=== PATIENT | male | born 1990 | race African-American/Black ===

== ENCOUNTER 2018-08-31 21:00 | Emergency (ER) | payer SELFPAY ==
[~2018-08-31] VITALS: Ht 177.8 cm; Wt 95.3 kg
[2018-08-31] MEDS ORDERED: IPRATRPIUM/ALBUTEROL 0.5/2.5MG 3 ML NEBU. NEB ONE (21:15)
[2018-08-31] MEDS ORDERED: ALBUTEROL SULFATE 2.5 MG/3 ML NEBU. NEB ONE (21:15)
[2018-08-31] MEDS ORDERED: DEXAMETHASONE SOD PHOS 20 MG/5 ML VIAL. PO ONE (21:30)
[2018-08-31] MEDS ORDERED: ALBUTEROL SULFATE 2.5 MG/3 ML NEBU. CONT NEB ONE (22:15)
--- NOTE | 2018-08-31 22:20 | PHYS DOC ---
Past Medical History Past Medical History: Asthma Past Surgical History: No Surgical History Alcohol Use: Occasionally Drug Use: None Adult General Chief Complaint Chief Complaint: ASTHMA HPI HPI Patient is a 28 year old AA male who presents to the emergency room [facility] with complaints of severe shortness of breath since approximately 1829. Patient reports a history of asthma and seasonal allergies. He states that he smokes about half a pack of cigarettes a day. He has had a productive cough with fair thick sputum for the last week and half. He denies any fever, headache, sore throat, nausea, vomiting, diarrhea, abdominal pain, or back pain. 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 Since starting this job he has had uses inhaler at least 3 times a day and has had to take at least 2 nebulizer treatments a day. Currently the patient states that his chest feels tight and he is only able to speak 2-3 words at a time. Review of Systems Review of Systems Constitutional: Denies fever or chills [] Eyes: Denies eye itching, watering, or redness HENT: reports nasal congestion and frequent throat clearing Respiratory: reports severe SOA since 1829, increased MDI use for the last week an a half. productive cough with clear sputum, chest tightness Cardiovascular: denies palpitations GI: Denies abdominal pain, nausea, vomiting,or diarrhea [] Musculoskeletal: Denies back pain or joint pain [] Integument: Denies rash or skin lesions [] Neurologic: Denies headache, focal weakness or sensory changes [] All other systems were reviewed and found to be within normal limits, except as documented in this note. Current Medications Current Medications Current Medications Medications (Trade) Dose Ordered Sig/Gene Start Time Stop Time Status Last Admin Dose Admin Albuterol Sulfate (Ventolin Neb Soln) 10 mg 1X ONCE 08/31/18 22:15 08/31/18 22:16 DC 08/31/18 22:11 10 MG Albuterol/ Ipratropium (Duoneb) 3 ml 1X ONCE 08/31/18 21:15 08/31/18 21:16 DC 08/31/18 21:11 3 ML Dexamethasone Sodium Phosphate (Decadron) 10 mg 1X ONCE 08/31/18 21:30 08/31/18 21:31 DC 08/31/18 21:22 10 MG Allergies Allergies Allergies Coded Allergies Type Severity Reaction Last Updated Verified No Known Drug Allergies 08/31/18 No Physical Exam Physical Exam Constitutional: Well developed, well nourished, severe respiratory distress, sitting in tripod position, non-toxic appearance. [] HENT: Normocephalic, atraumatic, bilateral external ears normal, oropharynx moist, no oral exudates, nose normal. [] Eyes: PERRLA, conjunctiva normal, no discharge. [] Neck: Normal range of motion, no tenderness, supple, no stridor. [] Cardiovascular:Heart rate regular rhythm, no murmur [] Lungs & Thorax: Bilateral breath sounds diminished with inspiratory and expiratory wheezing throughout all delgado Skin: Warm, dry, no erythema, no rash, cap refill less than 2 seconds . [] Extremities: No cyanosis, no clubbing, ROM intact, no edema. [] Neurologic: Alert and oriented X 3, normal motor function, normal sensory function, no focal deficits noted. [] Psychologic: Affect normal, judgement normal, mood normal. [] Current Patient Data Vital Signs Vital Signs Date Time Temp Pulse Resp B/P (MAP) Pulse Ox O2 Delivery O2 Flow Rate FiO2 08/31/18 22:12 100 Nasal Cannula 2.0 08/31/18 21:23 87 20 135/82 (99) 08/31/18 21:07 97.7 97.7 EKG EKG [] Radiology/Procedures Radiology/Procedures CXR negative for acute findings read by Dr. Woodlal[] Pt was given an albuterol and duo neb treatment, lungs remain wheezy throughout A 1 hour continuous nebulizer was given, lung sounds were coarse with scattered expiratory wheezing, no retractions. pt is able to lay back in the bed, Speaking full sentences. Pt states that he is feeling much better. He has has an MDI and nebulizer at home. Course & Med Decision Making Course & Med Decision Making Pertinent Labs and Imaging studies reviewed. (See chart for details) Dx: Acute asthma exacerbation, allergic rhinitis Pt encouraged to start taking a daily antihistamine such as zyrtec or claritin. Continue home nebulizer treatments every 4 hours as needed. Prescription for prednisone 50 mg PO x5 days written. Pt instructed to quit smoking immediately and avoid exposure to airway irritants. Return to the ER if your symptoms worsen. Follow up with PCP next week, call and tell them you were seen in the ER and placed on steroids. Increase clear fluids. Pt's spouse and Patient verbalized an understanding of home care, medications, follow-up, and return to ED instructions and were in agreement with the plan of care. [] Dragon Disclaimer Dragon Disclaimer This electronic medical record was generated, in whole or in part, using a voice recognition dictation system. Departure Departure Impression: Primary Impression: Acute asthma exacerbation Additional Impression: Allergic rhinitis Disposition: HOME, SELF-CARE Condition: STABLE Patient Instructions: Asthma Prevention-Brief, Asthma, Adult, [id number] Additional Instructions: Fill prescription(s) and use as directed. STOP SMOKING! Continue using your nebulizer every 4 hours as needed for wheezing and shortness of breath, you can take another breathing treatment at 1230 if needed. Start taking a daily antihistamine such as zyrtec or claritin. Use a cool mist humidifier in room at bedtime. Tylenol or ibuprofen prn pain/fever. Increase clear fluids. Avoid triggers such as smoke, fragrance, dust, and pollen. May take OTC cough suppressants as needed. Follow-up with your primary care doctor as needed. Scripts Prednisone (PREDNISONE) 50 Mg Tablet 1 TAB PO DAILY, #5 TAB 0 Refills Prov: DK SANTIAGO APRN 08/31/18 Problem Qualifiers Primary Impression: Acute asthma exacerbation Asthma severity: severe Asthma persistence: persistent Qualified Codes: J45.51 - Severe persistent asthma with (acute) exacerbation Additional Impression: Allergic rhinitis Allergic rhinitis trigger: unspecified Allergic rhinitis seasonality: unspecified Qualified Codes: J30.9 - Allergic rhinitis, unspecified DK SANTIAGO APRN Aug 31, 2018 22:20
[2018-08-31] MEDS ORDERED: PRED50TA PO (22:54)
[2018-08-31 22:58] VITALS: BP 140/81
--- NOTE | 2018-08-31 23:56 | RAD ---
Chest AP portable at 2215: Reason for examination: Short of breath. Asthma. The heart size is normal. Mediastinum is unremarkable. Lung delgado are clear. No acute bony abnormalities are seen. Impression: No acute cardiopulmonary disease. Electronically signed by: Bhumi Silveira MD (08/31/2018 11:53 PM) [facility] [place]
[2018-09-01] MEDS ORDERED: NO HOME MEDICATIONS (02:38)
== END 2018-08-31 23:34 | disposition home or self-care (01) ==
LOC: ER 21:00
DX: J45.51 Severe persistent asthma with (acute) exacerbation (principal); J30.9 Allergic rhinitis, unspecified; F17.210 Nicotine dependence, cigarettes, uncomplicated
CPT/HCPCS: 71045; 94644; 99285; J1100; J7613; J7620; 94640

== ENCOUNTER 2018-09-01 01:07 | Inpatient (IN) | payer SELFPAY ==
[~2018-09-01] VITALS: Ht 182.9 cm; Wt 95.3 kg
[~2018-09-01 01:07] MED LIST: PRED50TA PO
[2018-09-01] MEDS ORDERED: ALBUTEROL SULFATE 2.5 MG/3 ML NEBU. ONE (01:10)
--- NOTE | 2018-09-01 01:19 | PHYS DOC ---
Past Medical History Past Medical History: Asthma Past Surgical History: No Surgical History Alcohol Use: Occasionally Drug Use: None Adult General Chief Complaint Chief Complaint: ASTHMA HPI HPI Patient is a 28 year old male who presents with acute asthma exacerbation. Patient presents with accessory muscle use and was 71% on room air. Patient was recently discharged from the emergency department with asthma exacerbation and reportedly had improved dramatically after his treatment in the ED which included an hour-long continuous as well as Decadron by mouth. Girlfriend states that he went home and went to bed and woke up accessory muscle use and shortness of breath. Resents with inspiratory and expiratory wheezes. Review of Systems Review of Systems Constitutional: Denies fever or chills [] Eyes: Denies change in visual acuity, redness, or eye pain [] HENT: Denies nasal congestion or sore throat [] Respiratory: Positive shortness of breath [] Cardiovascular: No additional information not addressed in HPI [] GI: Denies abdominal pain, nausea, vomiting, bloody stools or diarrhea [] : Denies dysuria or hematuria [] Musculoskeletal: Denies back pain or joint pain [] Integument: Denies rash or skin lesions [] Neurologic: Denies headache, focal weakness or sensory changes [] Endocrine: Denies polyuria or polydipsia [] All other systems were reviewed and found to be within normal limits, except as documented in this note. Current Medications Current Medications Current Medications Medications (Trade) Dose Ordered Sig/Gene Start Time Stop Time Status Last Admin Dose Admin Albuterol Sulfate (Ventolin Neb Soln) 2.5 mg PRN Q4HRS PRN 09/01/18 01:30 Albuterol/ Ipratropium (Duoneb) 3 ml 1X ONCE 09/01/18 01:30 09/01/18 01:31 DC Methylprednisolone Sodium Succinate (SOLU-Medrol 40MG VIAL) 60 mg Q8HRS 09/01/18 06:00 Methylprednisolone Sodium Succinate (SOLU-Medrol 125MG VIAL) 125 mg 1X ONCE 09/01/18 01:30 09/01/18 01:31 DC Morphine Sulfate (Morphine Sulfate) 2 mg PRN Q2HR PRN 09/01/18 01:30 09/02/18 01:29 Ondansetron HCl (Zofran) 4 mg 1X ONCE 09/01/18 02:00 09/01/18 02:01 Allergies Allergies Allergies Coded Allergies Type Severity Reaction Last Updated Verified No Known Drug Allergies 08/31/18 No Physical Exam Physical Exam Constitutional: Well developed, well nourished, no acute distress, non-toxic appearance. [] HENT: Normocephalic, atraumatic, bilateral external ears normal, oropharynx moist, no oral exudates, nose normal. [] Eyes: PERRLA, EOMI, conjunctiva normal, no discharge. [] Neck: Normal range of motion, no tenderness, supple, no stridor. [] Cardiovascular:Heart rate regular rhythm, no murmur [] Lungs & Thorax: Inspiratory and expiratory wheezes with accessory muscle use[] Abdomen: Bowel sounds normal, soft, no tenderness, no masses, no pulsatile masses. [] Skin: Warm, dry, no erythema, no rash. [] Back: No tenderness, no CVA tenderness. [] Extremities: No tenderness, no cyanosis, no clubbing, ROM intact, no edema. [] Neurologic: Alert and oriented X 3, normal motor function, normal sensory function, no focal deficits noted. [] Psychologic: Affect normal, judgement normal, mood normal. [] EKG EKG [] Radiology/Procedures Radiology/Procedures [facility] [address] [place], [place] [id number] IMAGING REPORT Signed PATIENT: LILLY ROSENBERG ACCOUNT: [id number] : 1990 LOCATION: ER AGE: 28 SEX: M EXAM STATUS: DEP ER ORD. PHYSICIAN: DK SANTIAGO APRN REASON: SOA asthma PROCEDURE: PORTABLE CHEST 1V Chest AP portable at 2215: Reason for examination: Short of breath. Asthma. The heart size is normal. Mediastinum is unremarkable. Lung delgado are clear. No acute bony abnormalities are seen. Impression: No acute cardiopulmonary disease. Electronically signed by: Bhumi Cannon MD (08/31/2018 11:53 PM) [facility] DICTATED and SIGNED BY: BHUMI CANNON MD DATE: 08/31/18 0256 [] Course & Med Decision Making Course & Med Decision Making Pertinent Labs and Imaging studies reviewed. (See chart for details) [] Dragon Disclaimer Dragon Disclaimer This electronic medical record was generated, in whole or in part, using a voice recognition dictation system. Departure Departure Referrals: NO PCP (PCP) CRISTÓBAL MARIA MD Sep 01, 2018 01:19
[2018-09-01] MEDS ORDERED: IPRATRPIUM/ALBUTEROL 0.5/2.5MG 3 ML NEBU. NEB ONE (01:30)
[2018-09-01] MEDS ORDERED: ONDANSETRON PF 4 MG/2 ML VIAL. IV PRN (01:30)
[2018-09-01] MEDS ORDERED: MORPHINE SULFATE 2 MG/ML VIAL. IV PRN (01:30)
[2018-09-01] MEDS ORDERED: methylPREDNISolone SOD SUCC PF 125 MG/2 ML VIAL. IV ONE (01:30)
[2018-09-01 01:45] LABS: BASO % 0 % (0-3); EOS % 0 % (0-3); HEMATOCRIT 48.7 % (39.0-53.0); HEMOGLOBIN 16.2 g/dL (13.0-17.5); LYMPH # 1.2 x10^3/uL (1.0-4.8); LYMPH % 8 % (24-48); MEAN CORPUSCULAR HEMOGLOBIN 28 pg (25-35); MEAN CORPUSCULAR HGB CONC 33 g/dL (31-37); MEAN CORPUSCULAR VOLUME 84 fL (79-100); MONO # 0.4 x10^3/uL (0.0-1.1); MONO % 3 % (0-9); NEUT # 13.3 x10^3uL (1.8-7.7); NEUT % 89 % (31-73); PLATELET COUNT 220 x10^3/uL (140-400); RED BLOOD COUNT 5.82 x10^6/uL (4.30-5.70); RED CELL DISTRIBUTION WIDTH 14.8 % (11.5-14.5); WHITE BLOOD COUNT 14.9 x10^3/uL (4.0-11.0)
[2018-09-01 01:54] LABS: CALCIUM 9.5 mg/dL (8.5-10.1); CREATININE 0.9 mg/dL (0.7-1.3); GFR 121.6; POTASSIUM 4.4 mmol/L (3.5-5.1)
[2018-09-01 01:59] LABS: ALBUMIN 4.2 g/dL (3.4-5.0); TOTAL BILIRUBIN 0.3 mg/dL (0.2-1.0); TOTAL PROTEIN 8.6 g/dL (6.4-8.2)
[2018-09-01] MEDS ORDERED: ONDANSETRON PF 4 MG/2 ML VIAL. IV ONE (02:00)
[2018-09-01] MEDS ORDERED: NO HOME MEDICATIONS (02:38)
[2018-09-01 03:00] VITALS: BP 122/77
[2018-09-01 03:41] LABS: % LYMPHS 14 % (24-48); % SEGS 86 % (35-66); PLT ESTIMATE ADEQUATE (ADEQUATE)
[2018-09-01] MEDS: methylPREDNISolone SOD SUCC PF 40 MG/ML VIAL. IV SCH ×3 (05:43→20:47)
[2018-09-01 07:00] VITALS: BP 133/96
[2018-09-01] MEDS: ALBUTEROL SULFATE 2.5 MG/3 ML NEBU. NEB PRN (09:38)
[2018-09-01 11:00] VITALS: BP 111/65
[2018-09-01] MEDS: IPRATRPIUM/ALBUTEROL 0.5/2.5MG 3 ML NEBU. NEB SCH ×3 (11:23→18:40)
--- NOTE | 2018-09-01 12:15 | HP ---
ADMIT DATE: 09/01/2018 CHIEF COMPLAINT: Wheezing. HISTORY OF PRESENT ILLNESS: The patient is a pleasant, relatively healthy 28-year-old male presented with wheezing. He has known asthma. Rates his symptoms as 7/10, has associated weakness and anxiety. I discussed the case with ER physician. It appears the patient is having asthma exacerbation with hypoxia. We are going to admit the patient and consult Pulmonary and give him some IV steroids and breathing treatments. PAST MEDICAL HISTORY: Asthma. ALLERGIES: None. FAMILY HISTORY: Asthma. SOCIAL HISTORY: Does not drink, smoke or take drugs. MEDICATIONS: Reviewed, please refer to the MRAD. REVIEW OF SYSTEMS: GENERAL: No history of weight change, weakness or fevers. SKIN: No bruising, hair changes or rashes. EYES: No blurred, double or loss of vision. NOSE AND THROAT: No history of nosebleeds, hoarseness or sore throat. HEART: No history of palpitations, chest pain or shortness of breath on exertion. LUNGS: He complains of shortness of breath and wheezing. GASTROINTESTINAL: Denies changes in appetite, nausea, vomiting, diarrhea or constipation. GENITOURINARY: No history of frequency, urgency, hesitancy or nocturia. NEUROLOGIC: Denies history of numbness, tingling, tremor or weakness. PSYCHIATRIC: No history of panic, anxiety or depression. ENDOCRINE: No history of heat or cold intolerance, polyuria or polydipsia. EXTREMITIES: Denies muscle weakness, joint pain, pain on walking or stiffness. PHYSICAL EXAMINATION: VITAL SIGNS: Temperature afebrile, pulse 80, respirations 18, blood pressure 144/90. O2 sat is 71% on room air. GENERAL: He is alert, cooperative. HEART: Normal S1, S2. LUNGS: Coarse with wheezing. ABDOMEN: Soft, positive bowel sounds. EXTREMITIES: No edema. SKIN: No rash. ENDOCRINE: No thyromegaly. LYMPHATICS: No cervical nodes. HEMATOPOIETIC: No bruising. LABORATORY DATA: White count is 15. Electrolytes are normal. ASSESSMENT AND PLAN: Asthma exacerbation and leukocytosis. The patient has been admitted. We will give him IV Solu-Medrol, DuoNeb q.4h., O2 per nasal cannula, empiric IV antibiotics. Consult Pulmonary, home meds, frequent labs. TIA BORGES DO DR: Maverick JOB#: [id number] / [id number]
[2018-09-01] MEDS: cefTRIAXone IV Push 1 GM VIAL. IVP SCH (13:28)
[2018-09-01 15:29] VITALS: BP 123/57
[2018-09-01 19:00] VITALS: BP 134/73
[2018-09-01] MEDS: LACTOBACILLUS RHAMNOSUS GG 1 CAPSULE. PO SCH (20:46)
[2018-09-01 23:01] VITALS: BP 137/69
[2018-09-02] MEDS: ALBUTEROL SULFATE 2.5 MG/3 ML NEBU. NEB PRN (00:11)
[2018-09-02 03:01] VITALS: BP 140/70
[2018-09-02] MEDS: methylPREDNISolone SOD SUCC PF 40 MG/ML VIAL. IV SCH ×3 (05:55→20:59)
[2018-09-02 07:00] VITALS: BP 125/85
--- NOTE | 2018-09-02 08:58 | PDOC ---
Provider Note Provider Note [id number] acute resp fail ae of asthma acute bronchitis see orders LILLI REESE MD Sep 02, 2018 08:58
[2018-09-02] MEDS: IPRATRPIUM/ALBUTEROL 0.5/2.5MG 3 ML NEBU. NEB SCH ×4 (09:10→20:20)
[2018-09-02] MEDS: LACTOBACILLUS RHAMNOSUS GG 1 CAPSULE. PO SCH ×2 (09:14→20:59)
--- NOTE | 2018-09-02 09:32 | CONS ---
DATE OF CONSULTATION: 09/02/2018 I was asked to see this 28-year-old gentleman for acute exacerbation of asthma. HISTORY OF PRESENT ILLNESS: He has history of [id number] smoking, continues to smoke about half a pack per day. He does have asthma and is on Symbicort and albuterol. He presented to the Emergency Room, had very severe shortness of breath and was using accessory muscles. The patient was given steroids and nebulizer treatments. He does have cough and sputum production. He denies runny nose. He denies chest pain. He has had wheezing. PAST MEDICAL HISTORY: Asthma. SOCIAL HISTORY: History of [id number] smoking, continues to smoke half pack per day. FAMILY HISTORY: There is no history of lung disease. ALLERGIES: No known drug allergies. MEDICATIONS: Currently, he is on Rocephin, DuoNeb, Solu-Medrol 60 mg IV every 8. REVIEW OF SYSTEMS: As mentioned as above. He denies drug abuse. Other systems are otherwise negative. PHYSICAL EXAMINATION: GENERAL: This is a well-developed gentleman. VITAL SIGNS: His O2 saturation is 92%, respiratory rate 18, heart rate 84, blood pressure 125/85, temperature 98.1. HEENT: Normocephalic, atraumatic. Pupils equal, round, reactive to light. Throat is clear. Nose is clear. NECK: There is no JVD, lymphadenopathy or thyromegaly. CARDIOVASCULAR: Regular rate and rhythm. PMI is nondisplaced. CHEST: Inspection is normal. LUNGS: There is end-expiratory wheezing. Percussion is within normal limit. ABDOMEN: Soft. Bowel sounds are good. There is no mass. EXTREMITIES: There is no edema. LYMPHATICS: There is no lymphadenopathy. NEUROLOGIC: Alert and oriented. LABORATORY DATA: I reviewed the following lab data: Chest x-ray does not show infiltrate. WBC 14.9, hemoglobin 16.2, platelet 220. Sodium 145, potassium 4.5, chloride 106, CO2 of 26, glucose 194, BUN 9, creatinine 0.9. IMPRESSION: 1. Acute respiratory failure secondary to acute exacerbation of asthma and acute bronchitis versus others. 2. Acute exacerbation of asthma. 3. Acute bronchitis. 4. Tobacco habituation. PLAN AND RECOMMENDATIONS: 1. Titrate FiO2 to keep O2 saturation 92%. 2. Bronchodilator. 3. Continue Solu-Medrol, do not change the dose as he is still wheezing. 4. Continue Rocephin. 5. I had a long discussion with him regarding smoking cessation. I have advised him to stop smoking forever. Thank you very much for allowing me to participate in care of this very nice gentleman. LILLI REESE M.D. DR: Yari JOB#: [id number] / [id number]
[2018-09-02 11:23] VITALS: BP 136/83
[2018-09-02] MEDS: cefTRIAXone IV Push 1 GM VIAL. IVP SCH ×2 (12:52→13:12)
--- NOTE | 2018-09-02 13:48 | PDOC ---
PROGRESS NOTES Chief Complaint Chief Complaint Acute asthma exacerbation History of Present Illness History of Present Illness Pt seen and examine, pt states is is breathing better than yesterday and would like to go home VSS dw/ DN Family at bedside Vitals Vitals Vital Signs Date Time Temp Pulse Resp B/P (MAP) Pulse Ox O2 Delivery O2 Flow Rate FiO2 09/02/18 13:06 Room Air 09/02/18 11:23 98.1 85 136/83 (100) 94 2.0 98.1 09/02/18 07:00 18 Physical Exam General: Alert, Oriented X3, Cooperative Heart: Regular rate, No murmurs Lungs: Other (Mild Inspiratory wheeze greater on the left) Abdomen: Normal bowel sounds, Soft Extremities: No clubbing, No cyanosis Review of Systems Review of Systems CO fatigue CO hunger Assessment and Plan Assessmemt and Plan Problems Medical Problems: (1) Acute asthma exacerbation Status: Acute Acute Asthma exacerbation Plan: O2 weaning Breathing Treatments Steroids Home Meds Labs Comment Review of Relevant I have reviewed the following items amado (where applicable) has been applied. Labs Laboratory Tests Test 09/01/18 01:30 White Blood Count 14.9 x10^3/uL (4.0-11.0) Red Blood Count 5.82 x10^6/uL (4.30-5.70) Hemoglobin 16.2 g/dL (13.0-17.5) Hematocrit 48.7 % (39.0-53.0) Mean Corpuscular Volume 84 fL (79-100) Mean Corpuscular Hemoglobin 28 pg (25-35) Mean Corpuscular Hemoglobin Concent 33 g/dL (31-37) Red Cell Distribution Width 14.8 % (11.5-14.5) Platelet Count 220 x10^3/uL (140-400) Neutrophils (%) (Auto) 89 % (31-73) Lymphocytes (%) (Auto) 8 % (24-48) Monocytes (%) (Auto) 3 % (0-9) Eosinophils (%) (Auto) 0 % (0-3) Basophils (%) (Auto) 0 % (0-3) Neutrophils # (Auto) 13.3 x10^3uL (1.8-7.7) Lymphocytes # (Auto) 1.2 x10^3/uL (1.0-4.8) Monocytes # (Auto) 0.4 x10^3/uL (0.0-1.1) Eosinophils # (Auto) 0.0 x10^3/uL (0.0-0.7) Basophils # (Auto) 0.0 x10^3/uL (0.0-0.2) Segmented Neutrophils % 86 % (35-66) Lymphocytes % 14 % (24-48) Platelet Estimate Adequate (ADEQUATE) Sodium Level 145 mmol/L (136-145) Potassium Level 4.4 mmol/L (3.5-5.1) Chloride Level 106 mmol/L (98-107) Carbon Dioxide Level 26 mmol/L (21-32) Anion Gap 13 (6-14) Blood Urea Nitrogen 9 mg/dL (8-26) Creatinine 0.9 mg/dL (0.7-1.3) Estimated GFR (Cockcroft-Gault) 121.6 BUN/Creatinine Ratio 10 (6-20) Glucose Level 194 mg/dL (70-99) Calcium Level 9.5 mg/dL (8.5-10.1) Total Bilirubin 0.3 mg/dL (0.2-1.0) Aspartate Amino Transf (AST/SGOT) 15 U/L (15-37) Alanine Aminotransferase (ALT/SGPT) 16 U/L (16-63) Alkaline Phosphatase 106 U/L (46-116) Total Protein 8.6 g/dL (6.4-8.2) Albumin 4.2 g/dL (3.4-5.0) Albumin/Globulin Ratio 1.0 (1.0-1.7) Medications Current Medications Albuterol Sulfate (Ventolin Neb Soln) 2.5 mg STK-MED ONCE .ROUTE ; Start at 01:10; Stop 09/01/18 at 01:11; Status DC Albuterol/ Ipratropium (Duoneb) 3 ml 1X ONCE NEB Last administered on at 01:30; Start 09/01/18 at 01:30; Stop 09/01/18 at 01:31; Status DC Methylprednisolone Sodium Succinate (SOLU-Medrol 125MG VIAL) 125 mg 1X ONCE IV Last administered on 09/01/18at 01:30; Start 09/01/18 at 01:30; Stop at 01:31; Status DC Ondansetron HCl (Zofran) 4 mg PRN Q8HRS PRN IV NAUSEA/VOMITING 1st choice; Start 09/01/18 at 01:30; Stop 09/02/18 at 01:29; Status DC Morphine Sulfate (Morphine Sulfate) 2 mg PRN Q2HR PRN IV SEVERE PAIN; Start at 01:30; Stop 09/02/18 at 01:29; Status DC Albuterol Sulfate (Ventolin Neb Soln) 2.5 mg PRN Q4HRS PRN NEB WHEEZING Last administered on 09/02/18at 00:11; Start 09/01/18 at 01:30 Methylprednisolone Sodium Succinate (SOLU-Medrol 40MG VIAL) 60 mg Q8HRS IV Last administered on 09/02/18at 13:13; Start 09/01/18 at 06:00 Ondansetron HCl (Zofran) 4 mg 1X ONCE IV Last administered on 09/01/18at 01:54 ; Start 09/01/18 at 02:00; Stop 09/01/18 at 02:01; Status DC Albuterol/ Ipratropium (Duoneb) 3 ml RTQID NEB Last administered on 09/02/18at 13:05; Start 09/01/18 at 12:00 Ceftriaxone Sodium 1 gm/ Dextrose 50 ml @ 100 mls/hr Q24H IV ; Start 09/01/18 at 11:45; Status UNV Ceftriaxone Sodium (Rocephin) 1 gm Q24H IVP Last administered on 09/02/18at 13: 12; Start 09/01/18 at 12:00 Lactobacillus Rhamnosus (Culturelle) 1 cap BID PO Last administered on at 09:14; Start 09/01/18 at 21:00 Active Scripts Active Prednisone 50 Mg Tablet 1 Tab PO DAILY Reported [No Home Medications] Vitals/I & O Vital Sign - Last 24 Hours 09/01/18 09/01/18 09/01/18 09/01/18 15:29 15:49 18:41 19:00 Temp 98.3 98.4 98.3 98.4 Pulse 79 83 Resp 18 20 B/P (MAP) 123/57 (79) 134/73 (93) Pulse Ox 90 92 O2 Delivery Nasal Cannula Nasal Cannula Nasal Cannula Room Air O2 Flow Rate 6.0 2.0 2.0 09/01/18 09/01/18 09/02/18 09/02/18 19:35 23:01 00:10 03:01 Temp 98.0 97.3 98.0 97.3 Pulse 74 85 Resp 20 20 B/P (MAP) 137/69 (91) 140/70 (93) Pulse Ox 91 95 O2 Delivery Nasal Cannula Room Air Room Air Nasal Cannula O2 Flow Rate 2.0 09/02/18 09/02/18 09/02/18 09/02/18 07:00 09:12 11:23 13:06 Temp 98.1 98.1 98.1 98.1 Pulse 84 85 Resp 18 B/P (MAP) 125/85 (98) 136/83 (100) Pulse Ox 90 91 94 O2 Delivery Room Air Room Air Nasal Cannula Room Air O2 Flow Rate 2.0 TIA BORGES III DO Sep 02, 2018 13:48
[2018-09-02 15:18] VITALS: BP 149/80
[2018-09-02 19:00] VITALS: BP 128/80
[2018-09-02 23:00] VITALS: BP 131/75
[2018-09-03 03:04] VITALS: BP 125/76
[2018-09-03 04:23] LABS: BASO % 0 % (0-3); EOS % 0 % (0-3); HEMATOCRIT 47.9 % (39.0-53.0); HEMOGLOBIN 16.1 g/dL (13.0-17.5); LYMPH # 1.3 x10^3/uL (1.0-4.8); LYMPH % 7 % (24-48); MEAN CORPUSCULAR HEMOGLOBIN 28 pg (25-35); MEAN CORPUSCULAR HGB CONC 34 g/dL (31-37); MEAN CORPUSCULAR VOLUME 83 fL (79-100); MONO # 0.8 x10^3/uL (0.0-1.1); MONO % 5 % (0-9); NEUT # 16.1 x10^3uL (1.8-7.7); NEUT % 88 % (31-73); PLATELET COUNT 220 x10^3/uL (140-400); RED BLOOD COUNT 5.76 x10^6/uL (4.30-5.70); RED CELL DISTRIBUTION WIDTH 15.1 % (11.5-14.5); WHITE BLOOD COUNT 18.2 x10^3/uL (4.0-11.0)
[2018-09-03 04:45] LABS: CALCIUM 9.7 mg/dL (8.5-10.1); GFR 107.7; POTASSIUM 4.6 mmol/L (3.5-5.1)
[2018-09-03] MEDS: methylPREDNISolone SOD SUCC PF 40 MG/ML VIAL. IV SCH ×2 (05:48→13:38)
[2018-09-03 07:00] VITALS: BP 134/85
[2018-09-03] MEDS: IPRATRPIUM/ALBUTEROL 0.5/2.5MG 3 ML NEBU. NEB SCH ×2 (07:07→11:30)
[2018-09-03] MEDS: LACTOBACILLUS RHAMNOSUS GG 1 CAPSULE. PO SCH (09:59)
[2018-09-03] MEDS ORDERED: PROAIR HFA8.5 GM INH (10:00)
[2018-09-03] MEDS ORDERED: CIPR500T94 PO (10:00)
[2018-09-03] MEDS ORDERED: FLUT12AE IH (10:00)
--- NOTE | 2018-09-03 10:10 | PDOC3 ---
Discharge Summary Visit Information Date of Admission: Sep 01, 2018 Date of Discharge: Sep 03, 2018 Admitting Diagnosis: hypoxia Final Diagnosis acute hypoxic respiratory failure asthma exacerbation acute bronchitis SIRS with organ dysfunction Problems Medical Problems: (1) Acute asthma exacerbation Status: Acute Brief Hospital Course Allergies Allergies Coded Allergies Type Severity Reaction Last Updated Verified No Known Drug Allergies 08/31/18 No Vital Signs Vital Signs Date Time Temp Pulse Resp B/P (MAP) Pulse Ox O2 Delivery O2 Flow Rate FiO2 09/03/18 07:09 96 Nasal Cannula 1.0 09/03/18 07:00 97.8 66 18 134/85 (101) 97.8 Lab Results Laboratory Tests Test 09/03/18 03:50 White Blood Count 18.2 x10^3/uL (4.0-11.0) Red Blood Count 5.76 x10^6/uL (4.30-5.70) Hemoglobin 16.1 g/dL (13.0-17.5) Hematocrit 47.9 % (39.0-53.0) Mean Corpuscular Volume 83 fL (79-100) Mean Corpuscular Hemoglobin 28 pg (25-35) Mean Corpuscular Hemoglobin Concent 34 g/dL (31-37) Red Cell Distribution Width 15.1 % (11.5-14.5) Platelet Count 220 x10^3/uL (140-400) Neutrophils (%) (Auto) 88 % (31-73) Lymphocytes (%) (Auto) 7 % (24-48) Monocytes (%) (Auto) 5 % (0-9) Eosinophils (%) (Auto) 0 % (0-3) Basophils (%) (Auto) 0 % (0-3) Neutrophils # (Auto) 16.1 x10^3uL (1.8-7.7) Lymphocytes # (Auto) 1.3 x10^3/uL (1.0-4.8) Monocytes # (Auto) 0.8 x10^3/uL (0.0-1.1) Eosinophils # (Auto) 0.0 x10^3/uL (0.0-0.7) Basophils # (Auto) 0.0 x10^3/uL (0.0-0.2) Sodium Level 140 mmol/L (136-145) Potassium Level 4.6 mmol/L (3.5-5.1) Chloride Level 103 mmol/L (98-107) Carbon Dioxide Level 29 mmol/L (21-32) Anion Gap 8 (6-14) Blood Urea Nitrogen 21 mg/dL (8-26) Creatinine 1.0 mg/dL (0.7-1.3) Estimated GFR (Cockcroft-Gault) 107.7 Glucose Level 141 mg/dL (70-99) Calcium Level 9.7 mg/dL (8.5-10.1) Laboratory Tests Test 09/03/18 03:50 White Blood Count 18.2 x10^3/uL (4.0-11.0) Red Blood Count 5.76 x10^6/uL (4.30-5.70) Hemoglobin 16.1 g/dL (13.0-17.5) Hematocrit 47.9 % (39.0-53.0) Mean Corpuscular Volume 83 fL (79-100) Mean Corpuscular Hemoglobin 28 pg (25-35) Mean Corpuscular Hemoglobin Concent 34 g/dL (31-37) Red Cell Distribution Width 15.1 % (11.5-14.5) Platelet Count 220 x10^3/uL (140-400) Neutrophils (%) (Auto) 88 % (31-73) Lymphocytes (%) (Auto) 7 % (24-48) Monocytes (%) (Auto) 5 % (0-9) Eosinophils (%) (Auto) 0 % (0-3) Basophils (%) (Auto) 0 % (0-3) Neutrophils # (Auto) 16.1 x10^3uL (1.8-7.7) Lymphocytes # (Auto) 1.3 x10^3/uL (1.0-4.8) Monocytes # (Auto) 0.8 x10^3/uL (0.0-1.1) Eosinophils # (Auto) 0.0 x10^3/uL (0.0-0.7) Basophils # (Auto) 0.0 x10^3/uL (0.0-0.2) Sodium Level 140 mmol/L (136-145) Potassium Level 4.6 mmol/L (3.5-5.1) Chloride Level 103 mmol/L (98-107) Carbon Dioxide Level 29 mmol/L (21-32) Anion Gap 8 (6-14) Blood Urea Nitrogen 21 mg/dL (8-26) Creatinine 1.0 mg/dL (0.7-1.3) Estimated GFR (Cockcroft-Gault) 107.7 Glucose Level 141 mg/dL (70-99) Calcium Level 9.7 mg/dL (8.5-10.1) Brief Hospital Course Mr. Jacobs is a 28 old male, admit with resp failure, wheeze, known asthma, no home steroid inhaler better at 2 days Discharge Information Condition at Discharge: Improved Follow Up: Weeks Disposition/Orders: D/C to Home Scheduled Ciprofloxacin Hcl (Cipro) 500 Mg Tablet, 1 TAB PO BID, #10 Prescribed by: LUIS MONTANO on 09/03/18 1000 Fluticasone Propionate (Flovent 110MCG Hfa) 12 Gm Aer.w.adap, 1 PUFF IH BID, #1 Ref 2 Prescribed by: LUIS MONTANO on 09/03/18 1000 Prednisone (Prednisone) 50 Mg Tablet, 1 TAB PO DAILY, #5 Ref 0 Prescribed by: DK SANTIAGO APRN on 08/31/18 2254 Scheduled PRN Albuterol Sulfate (Proair Hfa Inhaler) 8.5 Gm Hfa.aer.ad, 1 PUFF INH PRN Q6HRS PRN for SHORTNESS OF BREATH, #1 Ref 0 Prescribed by: LUIS MONTANO on 09/03/18 1000 Miscellaneous Medications [No Home Medications] , (Reported) Entered as Reported by: JESUS ERVIN on 09/01/18237 Last Action: New Order on 09/01/18237 by JESUS ERVIN Patient Instructions Patient Instructions f/u PULM i discussed need for him to find insurance for inhaled steroids, chronic asthma > 30 min face to face wheeze on left chest persists, trel f/u, cont tx LUIS MONTANO MD Sep 03, 2018 10:10
[2018-09-03] MEDS: ALBUTEROL SULFATE 2.5 MG/3 ML NEBU. NEB PRN (10:33)
[2018-09-03 11:00] VITALS: BP 124/81
--- NOTE | 2018-09-03 13:44 | PDOC ---
PULMONARY PROGRESS NOTES Subjective feels better Vitals Vital Signs Date Time Temp Pulse Resp B/P (MAP) Pulse Ox O2 Delivery O2 Flow Rate FiO2 09/03/18 11:00 97.8 74 18 124/81 (95) 92 Room Air 97.8 09/03/18 07:09 1.0 General: Alert, No acute distress Lungs: Wheezing (faint) Cardiovascular: S1 Abdomen: Soft Neuro Exam: Alert Extremities: No Edema Labs Laboratory Tests Test 09/03/18 03:50 White Blood Count 18.2 x10^3/uL (4.0-11.0) Red Blood Count 5.76 x10^6/uL (4.30-5.70) Hemoglobin 16.1 g/dL (13.0-17.5) Hematocrit 47.9 % (39.0-53.0) Mean Corpuscular Volume 83 fL (79-100) Mean Corpuscular Hemoglobin 28 pg (25-35) Mean Corpuscular Hemoglobin Concent 34 g/dL (31-37) Red Cell Distribution Width 15.1 % (11.5-14.5) Platelet Count 220 x10^3/uL (140-400) Neutrophils (%) (Auto) 88 % (31-73) Lymphocytes (%) (Auto) 7 % (24-48) Monocytes (%) (Auto) 5 % (0-9) Eosinophils (%) (Auto) 0 % (0-3) Basophils (%) (Auto) 0 % (0-3) Neutrophils # (Auto) 16.1 x10^3uL (1.8-7.7) Lymphocytes # (Auto) 1.3 x10^3/uL (1.0-4.8) Monocytes # (Auto) 0.8 x10^3/uL (0.0-1.1) Eosinophils # (Auto) 0.0 x10^3/uL (0.0-0.7) Basophils # (Auto) 0.0 x10^3/uL (0.0-0.2) Sodium Level 140 mmol/L (136-145) Potassium Level 4.6 mmol/L (3.5-5.1) Chloride Level 103 mmol/L (98-107) Carbon Dioxide Level 29 mmol/L (21-32) Anion Gap 8 (6-14) Blood Urea Nitrogen 21 mg/dL (8-26) Creatinine 1.0 mg/dL (0.7-1.3) Estimated GFR (Cockcroft-Gault) 107.7 Glucose Level 141 mg/dL (70-99) Calcium Level 9.7 mg/dL (8.5-10.1) Laboratory Tests Test 09/03/18 03:50 White Blood Count 18.2 x10^3/uL (4.0-11.0) Red Blood Count 5.76 x10^6/uL (4.30-5.70) Hemoglobin 16.1 g/dL (13.0-17.5) Hematocrit 47.9 % (39.0-53.0) Mean Corpuscular Volume 83 fL (79-100) Mean Corpuscular Hemoglobin 28 pg (25-35) Mean Corpuscular Hemoglobin Concent 34 g/dL (31-37) Red Cell Distribution Width 15.1 % (11.5-14.5) Platelet Count 220 x10^3/uL (140-400) Neutrophils (%) (Auto) 88 % (31-73) Lymphocytes (%) (Auto) 7 % (24-48) Monocytes (%) (Auto) 5 % (0-9) Eosinophils (%) (Auto) 0 % (0-3) Basophils (%) (Auto) 0 % (0-3) Neutrophils # (Auto) 16.1 x10^3uL (1.8-7.7) Lymphocytes # (Auto) 1.3 x10^3/uL (1.0-4.8) Monocytes # (Auto) 0.8 x10^3/uL (0.0-1.1) Eosinophils # (Auto) 0.0 x10^3/uL (0.0-0.7) Basophils # (Auto) 0.0 x10^3/uL (0.0-0.2) Sodium Level 140 mmol/L (136-145) Potassium Level 4.6 mmol/L (3.5-5.1) Chloride Level 103 mmol/L (98-107) Carbon Dioxide Level 29 mmol/L (21-32) Anion Gap 8 (6-14) Blood Urea Nitrogen 21 mg/dL (8-26) Creatinine 1.0 mg/dL (0.7-1.3) Estimated GFR (Cockcroft-Gault) 107.7 Glucose Level 141 mg/dL (70-99) Calcium Level 9.7 mg/dL (8.5-10.1) Medications Active Scripts Medications Dose Route/Sig Max Daily Dose Days Date Category Proair Hfa Inhaler (Albuterol Sulfate) 8.5 Gm Hfa.aer.ad 1 Puff INH PRN Q6HRS PRN 09/03/18 Rx Cipro (Ciprofloxacin Hcl) 500 Mg Tablet 1 Tab PO BID 09/03/18 Rx Flovent 110MCG Hfa (Fluticasone Propionate) 12 Gm Aer.w.adap 1 Puff IH BID 09/03/18 Rx [No Home Medications] 09/01/18 Reported Prednisone 50 Mg Tablet 1 Tab PO DAILY 08/31/18 Rx Impression . 1. Acute respiratory failure secondary to acute exacerbation of asthma and acute bronchitis 2. Acute exacerbation of asthma. 3. Acute bronchitis. 4. Tobacco habituation. Plan . 1. off 02 2. Bronchodilator. 3. po steroid taper 4. po abx 5. I had a long discussion with him regarding smoking cessation. I have advised him to stop smoking forever. 6. ok with [place] home on inhalers including steroid inhaler, hopefully he can afford it. PO steroid taper ALF HURLEY MD Sep 03, 2018 13:44
--- NOTE | 2018-09-03 15:58 | RESP ---
DATE OF SERVICE: 09/03/2018 The patient's FVC was 3.5, which is 75% predicted, FEV1 1.64, which is 41% predicted. FEV1/FVC ratio was reduced. Postbronchodilator, 8% improvement in FVC and 10% improvement in FEV1. IMPRESSION: 1. Moderate to severe obstructive airway disease. 2. No response to bronchodilators. ALF HURLEY MD DR: SPRING/ok JOB#: [id number] / [id number] LUIS Amezcua MD
--- NOTE | 2018-09-06 11:57 | DS ---
DATE OF DISCHARGE: 09/03/2018 ADMISSION DIAGNOSIS: Asthma. DISCHARGE DIAGNOSIS: Resolving asthma. HOSPITAL COURSE: The patient is a pleasant 28-year-old male who presented with asthma. He was admitted. We gave him IV steroids, breathing treatments and oxygen. Once he quit wheezing, we tapered off the steroids. He is now being sent home with a Medrol Dosepak. DISPOSITION: Home. ACTIVITY: As tolerated. DIET: Low sodium. MEDICATIONS: Please see the MRAD. TOTAL TIME: 32 minutes. TIA BORGES DO DR: VAHE/ok JOB#: [id number] / [id number]
== END 2018-09-03 14:15 | disposition home or self-care (01) | DRG 189 ==
LOC: ER 01:07 → 5 NORTH 01:44
PROVIDERS: ADMIT Internal Medicine; ATTEND Internal Medicine
DX: J96.01 Acute respiratory failure with hypoxia (principal); R65.11 Systemic inflammatory response syndrome (SIRS) of non-infectious origin with acute organ dysfunction; J45.901 Unspecified asthma with (acute) exacerbation; J20.9 Acute bronchitis, unspecified; F41.9 Anxiety disorder, unspecified; F17.200 Nicotine dependence, unspecified, uncomplicated; Z82.5 Family history of asthma and other chronic lower respiratory diseases; Z79.899 Other long term (current) drug therapy
CPT/HCPCS: 36415; 80048; 80053; 85007; 85025; 94060; 94375; 94618; 94640; 94760; 96374; 96375; J0696; J2405; J2920; J2930; J7613; J7620; 99285-25

== ENCOUNTER 2021-06-08 18:37 | Emergency (ER) | payer SELFPAY ==
[~2021-06-08] VITALS: Ht 182.9 cm; Wt 90.0 kg
[~2021-06-08 18:37] MED LIST changes: +ALBU2.5V8 IH; +ALBU2.5V8 INH; +CIPR500T94 PO; +FLUT12AE IH; +NO HOME MEDICATIONS
[2021-06-08] MEDS ORDERED: predniSONE 20 MG TABLET PO ONE (19:00)
[2021-06-08] MEDS ORDERED: ALBUTEROL SULFATE 2.5 MG/3 ML NEBU. CONT NEB ONE (19:00)
[2021-06-08] MEDS ORDERED: IPRATRPIUM/ALBUTEROL 0.5/2.5MG 3 ML NEBU. NEB ONE ×2 (19:00→22:00)
[2021-06-08] MEDS ORDERED: MAGNESIUM SULFATE 2GM 50 ML IV ONE (19:15)
--- NOTE | 2021-06-08 19:28 | RAD ---
AP chest. HISTORY: Asthma exacerbation, short of breath AP view was taken of the chest. Lungs are clear. Heart is normal in size. There is hyperexpansion con sistent with reactive airway disease. There is no effusion. IMPRESSION: 1. Mild hyperexpansion. 2. No acute infiltrates. Electronically signed by: Gilbert Stack MD (06/08/2021 7:26 PM) [facility]
--- NOTE | 2021-06-08 21:56 | PHYS DOC ---
Past Medical History Past Medical History: Asthma Past Surgical History: No Surgical History Smoking Status: Never Smoker Alcohol Use: None Drug Use: None General Adult EDM: Chief Complaint: SHORTNESS OF BREATH HPI: HPI: Patient is a 31 year old male presents emergency department with acute respiratory distress. Patient states he woke up having an asthma attack, has used his rescue inhaler x1 this morning approximately 9 AM, patient reports shortly after then he started using his nebulizer treatment machine and use it continuously until he figured he may need to come into the hospital to have an evaluation. Patient denies chest pain, denies recent fever or chills, denies abdominal pains, nausea, vomiting, or diarrhea. Patient denies aches or pains, or visual disturbances. Patient denies any other physical complaints or physical concerns. Patient states that he has been hospitalized in the past for his asthma problems. Patient states that he quit smoking cigarettes on 22 May. Denies EtOH use, denies illicit drug use. Review of Systems: Review of Systems: 14 body systems of review of systems have been reviewed. See HPI for pertinent positives and negative responses, otherwise all other systems are negative, nonpertinent or noncontributory. Constitutional: Negative except as outlined in HPI above. Skin: Negative except as outlined in HPI above. Eyes: Negative except as outlined in HPI above. HENT: Negative except as outlined in HPI above. Respiratory: Negative except as outlined in HPI above. Cardiovascular: Negative except as outlined in HPI above. GI: Negative except as outlined in HPI above. : Negative except as outlined in HPI above. Musculoskeletal: Negative except as outlined in HPI above. Integument: Negative except as outlined in HPI above. Neurologic: Negative except as outlined in HPI above. Endocrine: Negative except as outlined in HPI above. Lymphatic: Negative except as outlined in HPI above. Psychiatric: Negative except as outlined in HPI above. Heart Score: C/O Chest Pain: No Risk Factors: Risk Factors: DM, Current or recent (<one month) smoker, HTN, HLP, family history of CAD, obesity. Risk Scores: Score 0 - 3: 2.5% MACE over next 6 weeks - Discharge Home Score 4 - 6: 20.3% MACE over next 6 weeks - Admit for Clinical Observation Score 7 - 10: 72.7% MACE over next 6 weeks - Early Invasive Strategies Current Medications: Current Medications Medications (Trade) Dose Ordered Sig/Gene Start Time Stop Time Status Last Admin Dose Admin Albuterol Sulfate (Ventolin Neb Soln) 10 mg 1X ONCE 06/08/21 19:00 06/08/21 19:01 DC 06/08/21 19:04 10 MG Albuterol/ Ipratropium (Duoneb) 3 ml 1X ONCE 06/08/21 22:00 06/08/21 22:01 Magnesium Sulfate 50 ml @ 25 mls/hr 1X ONCE 06/08/21 19:15 06/08/21 21:14 DC 06/08/21 19:14 25 MLS/HR Prednisone (Prednisone) 60 mg 1X ONCE 06/08/21 19:00 06/08/21 19:01 DC 06/08/21 19:08 60 MG Allergies: Allergies: Allergies Coded Allergies Type Severity Reaction Last Updated Verified acetaminophen Allergy Intermediate HIVES 05/22/21 Yes Physical Exam: PE: Constitutional: Well developed, well nourished, nontoxic in appearance, patient is in acute respiratory distress, speaking in one-word sentences, audible I/E wheezing. HENT: Normocephalic, atraumatic, bilateral external ears normal, oropharynx moist, no oral exudates, nose normal. No lymphadenopathy of the head or neck, bilateral TMs within normal limits. No drooling, no trismus, normal voice tones. Eyes: PERRLA, EOMI, conjunctiva normal, no discharge. Neck: Normal range of motion, no tenderness, supple, no stridor. No nuchal rigidity, no meningismus signs. Cardiovascular:Heart rate regular rhythm, no murmur, heart rate tachycardic at 107 during physical examination. Lungs & Thorax: Bilateral breath sounds clear to auscultation diminished at bases, inspiratory expiratory wheezing upper lobes. Abdomen: Bowel sounds normal, soft, no tenderness, no masses, no pulsatile masses. Skin: Warm, dry, no erythema, no rash. Back: No tenderness, no CVA tenderness. Extremities: No tenderness, no cyanosis, no clubbing, ROM intact, no edema. Neurologic: Alert and oriented X 3, normal motor function, normal sensory function, no focal deficits noted. Psychologic: Affect normal, judgement normal, mood normal. Current Patient Data: Vital Signs: Vital Signs Date Time Temp Pulse Resp B/P (MAP) Pulse Ox O2 Delivery O2 Flow Rate FiO2 06/08/21 20:13 16 17 166/93 (117) 97 High Flow Nasal Cannula 11.0 06/08/21 19:16 98.0 98.0 EKG: EKG: [] Radiology/Procedures: Radiology/Procedures: PATIENT: LILLY ROSENBERG ACCOUNT: [id number] : 1990 LOCATION: ER AGE: 31 SEX: M EXAM STATUS: REG ER ORD. PHYSICIAN: NICKIE WAGONER APRN REASON: asthma exacerpbation, short of breath PROCEDURE: CHEST AP ONLY AP chest. HISTORY: Asthma exacerbation, short of breath AP view was taken of the chest. Lungs are clear. Heart is normal in size. There is hyperexpansion consistent with reactive airway disease. There is no effusion. IMPRESSION: 1. Mild hyperexpansion. 2. No acute infiltrates. Electronically signed by: Gilbert Souza MD (06/08/2021 7:26 PM) [facility] DICTATED and SIGNED BY: GILBERT SOUZA MD DATE: 06/08/21 [id number] 0 Course & Med Decision Making: Course & Med Decision Making Pertinent Labs and Imaging studies reviewed. (See chart for details) 31-year-old male, vital signs reviewed, presents emergency department acute asthma exacerbation. Will order chest x-ray, DuoNeb treatment, strict prednisone p.o. Will reevaluate after period of time. Reevaluation of the patient, patient reports feeling better after DuoNeb treatment however patient still in acute exacerbation asthma attack, will order continuous albuterol treatment. Will reevaluate after period of time. Reevaluation of the patient, patient is now speaking in full sentences, is in no apparent distress, no audible I/E wheezing appreciated. Inspiratory and expiratory wheezing per auscultation, discussed with patient possible admission to hospital, patient states she wishes to go home, patient feels that he had another DuoNeb treatment he may be feeling better and will consider admission after. Will order additional DuoNeb treatment. After period of time, patient continues to be in no apparent distress, no wheezing appreciated per auscultation, patient states he feels much better and wishes to go home. Discuss with the patient all findings and diagnostic testing as well as the need to follow-up with their primary care provider for further evaluation and treatment or return to the ED if any new or worsening symptoms. Strict return precautions were also discussed at length, the patient voiced unde rstanding and agreement with the discharge planning. The patient was nontoxic in appearance, in no apparent distress, and hemodynamically stable at the time of disposition. Dragon Disclaimer: DragLydia Disclaimer: This electronic medical record was generated, in whole or in part, using a voice recognition dictation system. Departure Departure Impression: Primary Impression: Acute asthma exacerbation Qualified Codes: J45.901 - Unspecified asthma with (acute) exacerbation Disposition: HOME / SELF CARE / HOMELESS Condition: GOOD Referrals: NO PCP (PCP) Patient Instructions: Asthma, Adult Additional Instructions: You were seen today for an asthma exacerbation. Your exacerbation was likely caused by a viral upper respiratory tract infection or other environmental trigger. You should be checking your peak flows daily and taking all of your controller and rescue inhalers as previously prescribed. You have been prescribed prednisone today, please take as directed. It may take a few days for the steroids to begin to work, but use your albuterol as needed for the next few days to help with your symptoms. Return to the emergency department you develop a worsening cough, shortness of breath, fever of above 101 F orally. Chest pain, or any other new concerning symptoms. You need to follow-up with your primary care doctor as soon as possible as a severe asthma exacerbation can be fatal. Thank you for visiting our Emergency Department. It was a pleasure taking care of you today in the emergency department and we appreciate you tr usting us with your care. If any additional problems come up don't hesitate to return to visit us. Please follow up with your primary care provider so they can plan additional care if needed and know about the problem that you had. If symptoms worsen come back to the Emergency Department. Any concerning symptoms that start such as chest pain, shortness of air, weakness or numbness on one side of the body, running high fevers or any other concerning symptoms return to the ER. EMERGENCY DEPARTMENT GENERAL DISCHARGE INSTRUCTIONS Thank you for coming to [facility] Emergency Department (ED) today and trusting us with you care. We trust that you had a positive experience in our Emergency Department. If you wish to speak to the department management, you may call the Director at [phone]. YOUR FOLLOW UP INSTRUCTIONS ARE FOLLOWS: 1. Do you have a private Doctor? If you do not have a private doctor, please ask for a resource list of physicians or clinics that may be able to assist you with follow up care. 2. The Emergency Physicain has interpreted your x-rays. The X-Ray specialist will also review them. If there is a change in the findings, you will be notified in 48 hours when at all possible. 3. A lab test or culture has been done, your results will be reviewed and you will be notified if you need a change in treatment. ADDITIONAL INSTRUCTIONS AND INFORMATION: 1. Your care today has been supervised by a physician who is specially trained in emergency care. Many problems require more than one evaluation for a complete diagnosis and treatment. We recommend that you schedule your follow up appointment as recommended to ensure complete treatment of you illness or injury. If you are unable to obtain follow up care and continue to have a problem, or if your condition worsens, we recommend that you return to the ED. 2. We are not able to safely determine your condition over the phone nor are we able to give sound medical advice over the phone. For these safety reasons, if you call for medical advice we will ask you to come to the ED for further evaluation. 3. If you have any questions regarding these discharge instructions please call the ED at [phone]. SAFETY INFORMATION: In the interest of safety, wellness, and injury prevention; we encourage you to wear your sealbelt, if you smoke; quite smoking, and we encourage family to use a protective helmet for bicycling and other sporting events that present an increased risk for head injury. IF YOUR SYMPTOMS WORSEN OR NEW SYMPTOMS DEVELOP, OR YOU HAVE CONCERNS ABOUT YOUR CONDITION; OR IF YOUR CONDITION WORSENS WHILE YOU ARE WAITING FOR YOUR FOLLOW UP APPOINTMENT; EITHER CONTACT YOUR PRIMARY CARE DOCTOR, THE PHYSICIAN WHOSE NAME AND NUMBER YOU WERE GIVEN, OR RETURN TO THE ED IMMEDIATELY. Scripts Prednisone (PREDNISONE) 50 Mg Tablet 1 TAB PO DAILY for asthma, #5 TAB 0 Refills Prov: NICKIE WAGONER APRN 06/08/21 NICKIE WAGONER APRN Jun 08, 2021 21:56
[2021-06-08 23:12] VITALS: BP 124/89
[2021-06-08] MEDS ORDERED: PRED50TA PO (23:18)
== END 2021-06-08 23:35 | disposition home or self-care (01) ==
LOC: ER 18:37
DX: J45.901 Unspecified asthma with (acute) exacerbation (principal)
CPT/HCPCS: 71045; 94640; 94644; 96365; 96366; 99285; J3475; J7512; J7613